=== PATIENT | female | born 1955 | race Caucasian/White ===

== ENCOUNTER → 2017-05-11 | Outpatient (CLI) | payer MEDICAID ==
[~2017-05-11] MED LIST: CALC1CAP8 PO; CETI10TA18 PO; CHOL20002 PO; CROM13SP5 NS; FLUT9.9S NS; LOSA25TA5 PO; MELO15TA24 PO; METH750T87 PO; METO10TA82 PO; OXYC500S PO; PANT40TA3 PO; RANI150T8 PO; TRAM50TA2 PO; TRAZ50TA18 PO
== END | disposition home or self-care (01) ==
LOC: CFH 12:30
PROVIDERS: ATTEND Nurse Practitioner
DX: Z12.31 Encounter for screening mammogram for malignant neoplasm of breast (principal); Z13.820 Encounter for screening for osteoporosis; Z78.0 Asymptomatic menopausal state; M81.0 Age-related osteoporosis without current pathological fracture
CPT/HCPCS: 77080; G0202

== ENCOUNTER → 2017-08-17 | Outpatient (CLI) | payer MEDICAID | LOC: CFH 12:49 | PROVIDERS: ATTEND Nurse Practitioner | DX: Z12.2 Encounter for screening for malignant neoplasm of respiratory organs (principal); I25.10 Atherosclerotic heart disease of native coronary artery without angina pectoris; R91.1 Solitary pulmonary nodule; F17.200 Nicotine dependence, unspecified, uncomplicated | CPT/HCPCS: G0297 ==